=== PATIENT | female | born 1995 | race Caucasian/White ===

== ENCOUNTER 2017-02-04 06:54 | Emergency (ER) | payer OTHER ==
[2017-02-04 08:40] LABS: BASOPHIL % 0.4 % (0-2); PLATELET COUNT 215 x10^3mcL (130-400)
[2017-02-04 09:07] LABS: CALCIUM 9.3 mg/dL (8.5-10.1); CARBON DIOXIDE 27.7 mmol/L (21-32); CHLORIDE SERUM 106 mmol/L (98-107); CREATININE SERUM 0.7 mg/dL (0.6-1.0); GFR1 > 60 mL/min; GLUCOSE SERUM 100 mg/dL (74-106); POTASSIUM SERUM 3.6 mmol/L (3.5-5.1); SODIUM SERUM 142 mmol/L (136-145)
[2017-02-04 09:11] LABS: ALBUMIN 4.2 g/dL (3.4-5.0); ALKALINE PHOSPHATASE 77 U/L (46-116); ALT/SGPT 31 U/L (14-59); AST/SGOT 17 U/L (15-37); BILIRUBIN TOTAL 0.34 mg/dL (0.20-1.00); TOTAL PROTEIN, SERUM 8.2 g/dL (6.4-8.2)
[2017-02-04 09:57] VITALS: BP 97/60
== END 2017-02-04 09:57 | disposition home or self-care (01) ==
LOC: ED 06:54
PROVIDERS: Emergency Medicine
DX: N20.0 Calculus of kidney (principal); R10.2 Pelvic and perineal pain; R11.2 Nausea with vomiting, unspecified
CPT/HCPCS: J1885; J7030

== ENCOUNTER 2019-02-04 02:26 | Emergency (ER) | payer OTHER ==
[~2019-02-04] VITALS: Ht 160 cm; Wt 112.9 kg
[2019-02-04 02:31] VITALS: Ht 160 cm; Wt 112.9 kg
[2019-02-04 04:45] VITALS: BP 114/65
== END 2019-02-04 04:45 | disposition home or self-care (01) ==
LOC: ED 02:26
DX: F10.129 Alcohol abuse with intoxication, unspecified (principal); R11.2 Nausea with vomiting, unspecified; Z98.890 Other specified postprocedural states
CPT/HCPCS: Q0162